=== PATIENT | female | born 1975 ===

== ENCOUNTER 2017-10-02 14:16 | Emergency (ER) | payer SELFPAY ==
[2017-10-02 14:37] VITALS: BMI 24.5
[2017-10-02 14:43] VITALS: RESP 18
[2017-10-02] MEDS ORDERED: Iohexol 240 (50 ml) PO STA (15:21)
[2017-10-02] MEDS ORDERED: Sodium Chloride 0.9% 1,000 ML IV ONE (15:21)
--- NOTE | 2017-10-02 15:21 | C.PDOC ---
History Of Present Illness 42 year old female with PMHx of pancreatitis and cholecystectomy presents to the ER complaining of possible recurrent pancreatitis since yesterday. She states current episodes feel similar to prior symptoms. Patient describes pain as constant and localized in the epigastric region. She denies any nausea, vomiting, diarrhea or fever. Time Seen by Provider: 10/02/17 15:14 Chief Complaint (Nursing): Abdominal Pain History Per: Patient History/Exam Limitations: no limitations Onset/Duration Of Symptoms: Days Current Symptoms Are (Timing): Still Present Location Of Pain/Discomfort: Epigastric Associated Symptoms: denies: Fever, Nausea, Vomiting, Diarrhea Past Medical History Reviewed: Historical Data, Nursing Documentation, Vital Signs Vital Signs: Last Vital Signs Temp 98.6 F 10/02/17 14:37 Pulse 78 10/02/17 14:37 Resp 18 10/02/17 14:37 BP 119/78 10/02/17 14:37 Pulse Ox 100 10/02/17 18:23 - Medical History PMH: Pancreatitis Surgical History: Cholecystectomy Family History: States: No Known Family Hx - Social History Hx Alcohol Use: No Hx Substance Use: No - Immunization History Hx Tetanus Toxoid Vaccination: No Hx Influenza Vaccination: No Hx Pneumococcal Vaccination: Yes Review Of Systems Except As Marked, All Systems Reviewed And Found Negative. Constitutional: Negative for: Fever Gastrointestinal: Positive for: Abdominal Pain. Negative for: Nausea, Vomiting , Diarrhea Physical Exam - Physical Exam Appears: Non-toxic, Other (Moderate distress) Skin: Normal Color, Warm, Dry Head: Atraumatic, Normacephalic Eye(s): bilateral: Normal Inspection Nose: Normal Oral Mucosa: Moist Neck: Supple Chest: Symmetrical Cardiovascular: Rhythm Regular Respiratory: Other (NARD) Gastrointestinal/Abdominal: Tenderness (Tenderness to epigastric region ), No Distention, No Guarding, No Rebound Extremity: Normal ROM Neurological/Psych: Oriented x3, Normal Speech Gait: Steady ED Course And Treatment - Laboratory Results Result Diagrams: 10/02/17 15:39 10/02/17 15:39 O2 Sat by Pulse Oximetry: 100 (RA) Pulse Ox Interpretation: Normal - Radiology CXR: Interpreted by Me CXR Interpretation: Yes: No Acute Disease Progress Note: CT Abd/Pel and CXR ordered. EKG ordered and interpreted by me. Urine collected and sent to the lab for analysis. Patient given Morphine 4mg IVP , Zofran 4mg IVP and Fluids. Progress - Re-Evaluation Re-evaluation Note: 10/02/17 18:[address] REPORT REVIEWED. RAKESH MANJARREZ PMD - Data Reviewed Data Reviewed: Lab, Diagnostic imaging, Old records Disposition Counseled Patient/Family Regarding: Studies Performed, Diagnosis, Need For Followup, Rx Given - Disposition Referrals: YOUR,GI DOCTOR [Other] Disposition: HOME/ ROUTINE Disposition Time: 18:22 Condition: IMPROVED Prescriptions: oxyCODONE/Acetaminophen [Percocet 5/325 mg Tab] 1 ea PO Q6 PRN #10 tab PRN Reason: Pain, Moderate (4-7) Instructions: Acute Abdomen (Belly Pain), Adult (DC) Forms: [facility] (Brazilian), Work Excuse - Clinical Impression Clinical Impression: Abdominal pain - Scribe Statement The provider has reviewed the documentation as recorded by the Scribe Dian Aldridge All medical record entries made by the Scribe were at my direction and personally dictated by me. I have reviewed the chart and agree that the record accurately reflects my personal performance of the history, physical exam, medical decision making, and the department course for this patient. I have also personally directed, reviewed, and agree with the discharge instructions and disposition.
[2017-10-02] MEDS ORDERED: Iodixanol 320 MG/ML 100 ML BOTTLE IV ONE (15:30)
[2017-10-02] MEDS ORDERED: Iohexol 240 (50 ml) ONE (15:34)
[2017-10-02] MEDS ORDERED: Morphine 4 MG/ML VIAL ONE ×2 (15:35→17:48)
[2017-10-02] MEDS ORDERED: Sodium Chloride 0.9% 1,000 ML ONE (15:35)
[2017-10-02 15:46] LABS: BASO # 0.1 K/uL (0.0-0.2); BASO % 0.9 % (0.0-2.0); EOS # 0.1 K/uL (0.0-0.7); EOS % 1.7 % (0.0-4.0); HEMOGLOBIN 13.3 g/dL (11.0-16.0); LYMPH # 0.8 K/uL (1.0-4.3); LYMPH % 11.7 % (20.0-40.0); MEAN CELL VOLUME 86.5 fL (81.0-99.0); MEAN CORPUSCULAR HEMOGLOBIN 29.2 pg (27.0-31.0); MEAN CORPUSCULAR HGB CONC 33.8 g/dL (33.0-37.0); MONO # 0.8 K/uL (0.0-0.8); MONO % 10.6 % (0.0-10.0); NEUT # 5.4 K/uL (1.8-7.0); NEUT % 75.1 % (50.0-75.0); NRBC % 0.3 % (0.0-2.0); RBC 4.54 Mil/uL (3.80-5.20); RED CELL DISTRIBUTION WIDTH 13.7 % (11.5-14.5); WHITE BLOOD COUNT 7.2 K/uL (4.8-10.8)
[2017-10-02 15:59] LABS: ALB/GLOB RATIO 1.5 (1.0-2.1); ALBUMIN 4.2 g/dL (3.5-5.0); ALT/SGPT 50 U/L (9-52); AST/SGOT 33 U/L (14-36); BLOOD UREA NITROGEN 8 mg/dL (7-17); CALCIUM 8.5 mg/dl (8.6-10.4); GFR AFRICAN-AMERICAN > 60; GFR NON-AFRICAN AMERICAN > 60; LIPASE 88 U/L (23-300)
[2017-10-02 16:02] LABS: SQUAMOUS EPITHIAL 5 /hpf (0-5); URINE BACTERIA RARE (<OCC); URINE BILIRUBIN NEGATIVE (NEGATIVE); URINE BLOOD NEGATIVE (NEGATIVE); URINE CLARITY Hazy (Clear); URINE COLOR Yellow (YELLOW); URINE GLUCOSE (UA) NORMAL (Normal); URINE LEUKOCYTE ESTERASE NEG Leu/uL (Negative); URINE PROTEIN 1+ mg/dL (NEGATIVE); URINE UROBILINOGEN NORMAL mg/dL (0.2-1.0)
--- NOTE | 2017-10-02 17:45 | RAD ---
Chest x-ray single frontal view History: Chest pain. Comparison: None available. Findings: No focal infiltrate or effusion. Heart size within normal limits. Mild left hilar prominence. Impression: No focal infiltrate or effusion. Heart size within normal limits. Mild left hilar prominence.
[2017-10-02] MEDS ORDERED: Oxycodone/Acetaminophen 5/325 mg Tab PO STA (18:21)
[2017-10-02] MEDS ORDERED: Oxycodone/Acetaminophen 5/325 mg Tab ONE (18:27)
[2017-10-02 18:39] VITALS: BP 126/73; PULSE 76; TEMP 98; O2SAT 98
--- NOTE | 2017-10-02 19:24 | CT ---
Date of service: 10/02/2017 PROCEDURE: CT Abdomen and Pelvis with intravenous contrast HISTORY: Abdominal pain evaluate for PANCREATITIS COMPARISON: None. TECHNIQUE: Multiple contiguous axial images were performed through the abdomen pelvis with the use of intravenous contrast. Subsequently, sagittal and coronal reformatted images were obtained. Radiation dose: Total exam DLP = 494 mGy-cm. This CT exam was performed using one or more of the following dose reduction techniques: Automated exposure control, adjustment of the mA and/or kV according to patient size, and/or use of iterative reconstruction technique. FINDINGS: LOWER THORAX: Dependent atelectasis. LIVER: Mild fatty infiltration of the liver. Mild intrahepatic biliary ductal dilatation. GALLBLADDER AND BILE DUCTS: Prior cholecystectomy. PANCREAS: Unremarkable. No gross lesion or ductal dilatation. SPLEEN: Unremarkable. ADRENALS: Unremarkable. No mass. KIDNEYS AND URETERS: 1 centimeter renal hypodensity in the right kidney, indeterminate demonstrating a Hounsfield unit attenuation of 26. Correlation with multiphasic CT or MR would be helpful for further evaluation if clinically indicated. VASCULATURE: Unremarkable. No aortic aneurysm. BOWEL: Mildly dilated loops of small bowel the upper and mid abdomen with associated wall thickening which may represent underlying enteritis. Scattered areas of colonic thickening including the rectum, proximal sigmoid colon, proximal to mid descending colon, portions of the transverse colon, and cecum which may represent a mild multifocal colitis. Clinical correlation. APPENDIX: No findings to suggest acute appendicitis. PERITONEUM: Trace free fluid in the posterior pelvic cul-de-sac. LYMPH NODES: Unremarkable. No enlarged lymph nodes. BLADDER: Unremarkable. REPRODUCTIVE: Unremarkable. BONES: Degenerative changes with posterior disc osteophyte complex at the L5-S1 level. OTHER FINDINGS: None. IMPRESSION: Mildly dilated loops of small bowel the upper and mid abdomen with associated wall thickening which may represent underlying enteritis. Scattered areas of colonic thickening including the rectum, proximal sigmoid colon, proximal to mid descending colon, portions of the transverse colon, and cecum which may represent a mild multifocal colitis. Clinical correlation. Additional findings as above. These findings were preliminarily reported at 6:16 p.m. on 10/02/[address] Judy Banerjee from [facility].
== END 2017-10-02 18:39 | disposition home or self-care (01) ==
LOC: C.ER 14:16
DX: R10.9 Unspecified abdominal pain (principal)
CPT/HCPCS: 71045; 74177; 80053; 81001; 83690; 85025; 96374; 96375; 96376; 99284; J2270; J2405; J7030; Q9966; Q9967